=== PATIENT | female | born 1950 | race Caucasian/White ===

== ENCOUNTER → 2016-09-25 | Outpatient (CLI) | payer BC ==
--- NOTE | 2016-09-26 10:00 | KCIC ---
Bilateral digital screening mammograms with CAD: HISTORY Routine screening. COMPARISON Comparison is made to previous studies dated 09/24/2011. FINDINGS Breast density category D. The skin and nipples show no abnormalities. No abnormal lymph nodes are seen in the axilla. The breast parenchyma is extremely dense. There are new circumscribed nodules present in the medial right breast with the largest measuring at least 15 millimeters in greatest dimension. Further evaluation with ultrasound is recommended. There are no suspicious calcifications or architectural distortions. Some scattered benign appearing calcifications are present bilaterally. IMPRESSION Multiple circumscribed nodules in the right breast medially measuring up to 15 millimeters in size. Recommend further evaluation with ultrasound. This study was interpreted with the benefit of Computerized Aided Detection (CAD). Mammography is not 100% sensitive in detecting breast cancer. Therefore, a self breast exam and a clinical breast exam are very important. A negative mammogram does not negate a clinically suspicious finding and should not result in a delay in biopsying a clinically suspicious abnormality. BI-RADS category 0: Incomplete. Ultrasound followup is recommended. This patient's information has been entered into a reminder system for the patient to be notified with the results of this examination and a target date for her next mammograms. Electronically signed by: Martina Jenkins MD (September 26, 2016 09:58:36)
== END | disposition home or self-care (01) ==
LOC: KCIC MAMMO 14:11
PROVIDERS: ATTEND Internal Medicine
DX: Z12.31 Encounter for screening mammogram for malignant neoplasm of breast (principal)
CPT/HCPCS: G0202; 77067

== ENCOUNTER → 2016-10-08 | Outpatient (CLI) | payer BC ==
--- NOTE | 2016-10-08 15:24 | RAD ---
Indication abnormal mammogram. Note is made of the mammogram 09/25/2016 and the recommendation for ultrasound. Ultrasound of the right breast from approximately the 12 to the 6:00 position was performed. There are multiple cysts seen in the breast. Additional hypoechoic masses are seen, one at the 12:00 position of the breast 1 cm from the nipple measuring approximately 7 mm and a second retroareolar mass at the 12:00 position measuring approximately 13 mm. These do not have the features of a simple cyst but may represent complicated cysts. Follow-up targeted ultrasound and mammography of the right breast is suggested in 6 months to document stability IMPRESSION: Probable benign findings. Follow-up mammography and ultrasound suggested in 6 months. BI-RADS 3. Probably benign. Six-month follow-up
== END | disposition home or self-care (01) ==
LOC: KCIC US 14:05
PROVIDERS: ATTEND Internal Medicine
DX: R92.8 Other abnormal and inconclusive findings on diagnostic imaging of breast (principal)
CPT/HCPCS: 76641

== ENCOUNTER 2017-03-28 13:30 | Emergency (ER) | payer BC ==
[~2017-03-28] VITALS: Ht 160 cm; Wt 41.7 kg
[2017-03-28] MEDS ORDERED: ONDANSETRON PF 4 MG/2 ML VIAL. IV ONE (14:00)
[2017-03-28] MEDS ORDERED: IV NORMAL SALINE 1000ML BAG 1,000 ML IV ONE (14:00)
[2017-03-28] MEDS ORDERED: fentaNYL PF VIAL 100 MCG/2 ML VIAL IV PRN (14:00)
[2017-03-28 14:08] LABS: BILIRUBIN,URINE MODERATE (NEG); GLUCOSE,URINE NEGATIVE (NEG); NITRITE,URINE NEGATIVE (NEG); PROTEIN,URINE 30 mg/dL (NEG-TRACE)
[2017-03-28 14:11] LABS: BASO # 0.1 x10^3/uL (0.0-0.2); BASO % 0 % (0-3); EOS % 0 % (0-3); HEMATOCRIT 51.6 % (36.0-47.0); HEMOGLOBIN 17.5 g/dL (12.0-15.5); LYMPH # 3.6 x10^3/uL (1.0-4.8); LYMPH % 17 % (24-48); MEAN CORPUSCULAR HEMOGLOBIN 31 pg (25-35); MEAN CORPUSCULAR HGB CONC 34 g/dL (31-37); MEAN CORPUSCULAR VOLUME 90 fL (79-100); MONO % 6 % (0-9); NEUT % 76 % (31-73); PLATELET COUNT 298 x10^3/uL (140-400); RED BLOOD COUNT 5.72 x10^6/uL (3.50-5.40); RED CELL DISTRIBUTION WIDTH 14.1 % (11.5-14.5); WHITE BLOOD COUNT 21.9 x10^3/uL (4.0-11.0)
[2017-03-28] MEDS ORDERED: CONTRAST GIVEN MC PRN (14:15)
[2017-03-28] MEDS ORDERED: IOHEXOL 300 MG/ML 100ML VIAL. IV ONE (14:15)
[2017-03-28 14:23] LABS: BACTERIA,URINE 0 /HPF (0-FEW); RBC,URINE RARE /HPF (0-2); SQUAMOUS EPITHELIAL CELL,UR OCC /LPF
[2017-03-28 14:29] LABS: CREATININE 1.2 mg/dL (0.6-1.0); GFR 45.2; POTASSIUM 4.4 mmol/L (3.5-5.1)
[2017-03-28 14:44] LABS: ALBUMIN 3.6 g/dL (3.4-5.0); ALBUMIN/GLOBULIN RATIO 0.9 (1.0-1.7); MAGNESIUM 1.9 mg/dL (1.8-2.4); TOTAL BILIRUBIN 0.7 mg/dL (0.2-1.0); TOTAL PROTEIN 7.8 g/dL (6.4-8.2)
[2017-03-28 15:01] LABS: PLT ESTIMATE ADEQUATE (ADEQUATE)
--- NOTE | 2017-03-28 15:33 | EKG ---
[facility] [address] [place] [id number] Test Date: 2017-03-28 Test Time: 14:19:10 Pat Name: XI TRENT Department: Room: Gender: F Coat Baster: : 1950 Requested By: MAITE DENIS Order Number: [id number] Reading MD: Devaughn Drake MD Measurements Intervals [place] Rate: 104 P: 69 NM: 122 QRS: 63 QRSD: 86 T: 60 QT: 336 QTc: 448 Interpretive Statements SINUS TACHYCARDIA Electronically Signed On 03-31-2017 10:55:41 GORE SEAMER by Devaughn Drake MD
--- NOTE | 2017-03-28 15:46 | RAD ---
CT study of the abdomen and pelvis with contrast Indications: Vomiting and abdominal pain. Many abdominal surgeries. Technique: After IV infusion of 60 mL of Omnipaque 300, helical CT scanning of the abdomen and pelvis was performed. No GI contrast was administered. This may decrease the sensitivity to detect GI tract pathology. PQRS Compliance Statement: One or more of the following individualized dose reduction techniques were utilized for this examination: 1. Automated exposure control 2. Adjustment of the mA and/or kV according to patient size 3. Use of iterative reconstruction technique Comparison: None available at this facility. Findings: The liver and spleen and pancreas and gallbladder are normal. No adrenal mass is evident. Both kidneys are normal without hydronephrosis or hydroureter. Urinary bladder is empty. The patient has had multiple surgeries and it is difficult to figure out bowel anatomy. There is an ostomy of the anterior right lower quadrant of the abdomen. There are abnormally dilated loops of bowel filled with fluid and air within the lower abdomen and pelvis. This dilatation appears to extend to the opening of the ostomy of the anterior abdominal wall. Therefore, it is possible a stricture may be present here. A round calcified food bolus or stool is present here measuring 23 mm in size. There are multiple calcified fecaliths or food boluses within the more proximal bowel approximately 10 cm proximal to the ostomy. There is enhancement and mild thickening of the wall of this dilated bowel. More proximal bowel specifically the jejunum does not appear to be significantly dilated however. The stomach is nondistended. Small amount of dependent free fluid is seen within the pelvis. No free intraperitoneal air is evident. No lung base consolidation is seen. There is a linear scar or area of atelectasis of the left lung base. No osteolytic process is seen. IMPRESSION: The anatomy is difficult to figure out with regard to large and small bowel. By history, the rectum is surgically absent. There is abnormally dilated loops of fluid-filled and air-filled bowel within the lower abdomen and pelvis extending to the ostomy of the anterior lower right abdominal wall. Therefore, stricture at the level of the ostomy may be present. 23 mm calcified food bolus or piece of stool is seen just proximal to the ostomy opening. In addition, calcified fecaliths or food boluses are seen 10 cm proximal to this point. There is abnormal wall enhancement and thickening of this dilated bowel. No pneumatosis intestinalis is seen. No free air is evident. .
[2017-03-28] MEDS ORDERED: IV NORMAL SALINE 1000ML BAG 1,000 ML IV SCH (16:32)
[2017-03-28] MEDS ORDERED: PIPERACILLIN/TAZOBACTAM 4.5 GM in IV NORMAL SALINE 100ML 100 ML IV ONE (16:45)
[2017-03-28] MEDS ORDERED: PIPERACILLIN/TAZO IV Push 4.5 GM VIAL. IVP ONE (16:45)
[2017-03-28 17:30] VITALS: BP 95/62
--- NOTE | 2017-03-28 20:56 | PHYS DOC ---
Past Medical History Past Medical History: Arthritis, Hypothyroid, Other Additional Past Medical Histor: crohn's, rectal fistula, multiple abd sx Past Surgical History: Other Additional Past Surgical Histo: ileostomy - Kock pouch, rectum removed Alcohol Use: Rarely Drug Use: None Adult General Chief Complaint Chief Complaint: ABDOMINAL PAIN HPI HPI Patient is a 66 year old female who presents with vomiting and vomiting. Patient reports three-day history of symptoms with lower abdominal pain, nausea and vomiting, inability to tolerate oral intake. Reports decreased output to [place] ostomy. She denies fevers/chills, hematemesis, dysuria/hematuria. She has complicated past medical & surgical history with Crohn's disease on [employer] , rectal resection, ileostomy & reversal, now with [place] pouch, multiple fistula & repair. She has had all of her recent surgeries at [facility] [place] & has never been to this hospital before. She also has history of arthritis & hypothyroidism. Review of Systems Review of Systems Constitutional: Denies fever or chills Eyes: Denies change in visual acuity HENT: Denies nasal congestion or sore throat Respiratory: Denies cough or shortness of breath Cardiovascular: Denies chest pain or edema GI: Reports abdominal pain, nausea, vomiting, denies bloody stools or diarrhea : Denies dysuria or hematuria Musculoskeletal: Denies back pain or joint pain Integument: Denies rash or skin lesions Neurologic: Denies headache, focal weakness or sensory changes All other systems were reviewed and found to be within normal limits, except as documented in this note. Current Medications Current Medications Current Medications Medications (Trade) Dose Ordered Sig/Sukumar Start Time Stop Time Status Last Admin Dose Admin Fentanyl Citrate (Fentanyl 2ml Vial) 50 mcg PRN Q15MIN PRN 03/28/17 14:00 03/28/17 18:22 DC 03/28/17 14:13 50 MCG Info (Do NOT chart on this entry -- for MONITORING) 1 each PRN DAILY PRN 03/28/17 14:15 03/28/17 18:22 DC Iohexol (Omnipaque 300 Mg/ml) 75 ml 1X ONCE 03/28/17 14:15 03/28/17 14:16 DC 03/28/17 14:38 60 ML Ondansetron HCl (Zofran) 4 mg 1X ONCE 03/28/17 14:00 03/28/17 14:01 DC 03/28/17 14:12 4 MG Piperacillin Sod/ Tazobactam Sod (Zosyn) 4.5 gm 1X ONCE 03/28/17 16:45 03/28/17 16:46 DC Piperacillin Sod/ Tazobactam Sod 4.5 gm/Sodium Chloride 100 ml @ 200 mls/hr 1X ONCE 03/28/17 16:45 03/28/17 17:14 UNV Sodium Chloride 1,000 ml @ 1,260 mls/hr Q48M 03/28/17 16:32 03/28/17 17:32 DC Allergies Allergies Allergies Coded Allergies Type Severity Reaction Last Updated Verified No Known Drug Allergies 03/28/17 No Physical Exam Physical Exam Constitutional: thin, frail, no acute distress, non-toxic appearance. actively vomiting. HENT: Normocephalic, atraumatic, bilateral external ears normal, oropharynx moist, nose normal. Eyes: conjunctiva normal, no discharge. Neck: supple, no stridor. Cardiovascular: tachycardic, regular, no murmurs, no edema. Lungs & Thorax: LCTAB, no wheezing, no respiratory distress. Abdomen: soft, multiple surgical scars, [place] pouch to RLQ, moderate diffuse tenderness without rebound/guarding, no masses or pulsatile masses, nondistended. Skin: Warm, dry, no erythema, no rash. Back: No CVA tenderness. Extremities: No tenderness, no edema. Neurologic: Alert and oriented X 3, no focal deficits noted. Psychologic: Affect normal, judgement normal, mood normal. Current Patient Data Vital Signs Vital Signs Date Time Temp Pulse Resp B/P (MAP) Pulse Ox O2 Delivery O2 Flow Rate FiO2 03/28/17 17:30 88 18 95/62 (73) 94 Room Air 03/28/17 13:37 98.1 98.1 Lab Values Laboratory Tests Test 03/28/17 13:52 03/28/17 14:00 Urine Color [place] Urine Clarity Cloudy Urine pH 6.0 Urine Specific [place] 1.025 Urine Protein 30 mg/dL (NEG-TRACE) Urine Glucose (UA) Negative mg/dL (NEG) Urine Ketones (Stick) 15 mg/dL (NEG) Urine Blood Small (NEG) Urine Nitrite Negative (NEG) Urine Bilirubin Moderate (NEG) Urine Urobilinogen Dipstick 1.0 mg/dL (0.2 mg/dL) Urine Leukocyte Esterase Moderate (NEG) Urine RBC Rare /HPF (0-2) Urine WBC 1-4 /HPF (0-4) Urine Squamous Epithelial Cells Occ /LPF Urine Transitional Epithelial Cells Occ /LPF Urine Renal Epithelial Cells Occ /LPF Urine Bacteria 0 /HPF (0-FEW) Urine Mucus Slight /LPF White Blood Count 21.9 x10^3/uL (4.0-11.0) H Red Blood Count 5.72 x10^6/uL (3.50-5.40) H Hemoglobin 17.5 g/dL (12.0-15.5) H Hematocrit 51.6 % (36.0-47.0) H Mean Corpuscular Volume 90 fL (79-100) Mean Corpuscular Hemoglobin 31 pg (25-35) Mean Corpuscular Hemoglobin Concent 34 g/dL (31-37) Red Cell Distribution Width 14.1 % (11.5-14.5) Platelet Count 298 x10^3/uL (140-400) Neutrophils (%) (Auto) 76 % (31-73) H Lymphocytes (%) (Auto) 17 % (24-48) L Monocytes (%) (Auto) 6 % (0-9) Eosinophils (%) (Auto) 0 % (0-3) Basophils (%) (Auto) 0 % (0-3) Neutrophils # (Auto) 16.7 x10^3uL (1.8-7.7) H Lymphocytes # (Auto) 3.6 x10^3/uL (1.0-4.8) Monocytes # (Auto) 1.4 x10^3/uL (0.0-1.1) H Eosinophils # (Auto) 0.1 x10^3/uL (0.0-0.7) Basophils # (Auto) 0.1 x10^3/uL (0.0-0.2) Segmented Neutrophils % 65 % (35-66) Band Neutrophils % 14 % (0-9) H Lymphocytes % 16 % (24-48) L Monocytes % 5 % (0-10) Platelet Estimate Adequate (ADEQUATE) Sodium Level 135 mmol/L (136-145) L Potassium Level 4.4 mmol/L (3.5-5.1) Chloride Level 98 mmol/L (98-107) Carbon Dioxide Level 21 mmol/L (21-32) Anion Gap 16 (6-14) H Blood Urea Nitrogen 16 mg/dL (7-20) Creatinine 1.2 mg/dL (0.6-1.0) H Estimated GFR (Cockcroft-Gault) 45.2 BUN/Creatinine Ratio 13 (6-20) Glucose Level 118 mg/dL (70-99) H Lactic Acid Level 2.0 mmol/L (0.4-2.0) Calcium Level 10.0 mg/dL (8.5-10.1) Magnesium Level 1.9 mg/dL (1.8-2.4) Total Bilirubin 0.7 mg/dL (0.2-1.0) Aspartate Amino Transferase (AST) 27 U/L (15-37) Alanine Aminotransferase (ALT) 13 U/L (14-59) L Alkaline Phosphatase 86 U/L (46-116) Troponin I Quantitative < 0.017 ng/mL (0.000-0.055) Total Protein 7.8 g/dL (6.4-8.2) Albumin 3.6 g/dL (3.4-5.0) Albumin/Globulin Ratio 0.9 (1.0-1.7) L Lipase 209 U/L (73-393) Laboratory Tests 03/28/17 14:00 Laboratory Tests 03/28/17 14:00 EKG EKG Abdomen the: Sinus tachycardia rate 105, no acute ST or T wave changes, normal intervals, no ectopy[] Radiology/Procedures Radiology/Procedures PROCEDURE: CT ABD PELV W/ IV CONTRST ONLY CT study of the abdomen and pelvis with contrast Indications: Vomiting and abdominal pain. Many abdominal surgeries. Technique: After IV infusion of 60 mL of Omnipaque 300, helical CT scanning of the abdomen and pelvis was performed. No GI contrast was administered. This may decrease the sensitivity to detect GI tract pathology. PQRS Compliance Statement: One or more of the following individualized dose reduction techniques were utilized for this examination: 1. Automated exposure control 2. Adjustment of the mA and/or kV according to patient size 3. Use of iterative reconstruction technique Comparison: None available at this facility. Findings: The liver and spleen and pancreas and gallbladder are normal. No adrenal mass is evident. Both kidneys are normal without hydronephrosis or hydroureter. Urinary bladder is empty. The patient has had multiple surgeries and it is difficult to figure out bowel anatomy. There is an ostomy of the anterior right lower quadrant of the abdomen. There are abnormally dilated loops of bowel filled with fluid and air within the lower abdomen and pelvis. This dilatation appears to extend to the opening of the ostomy of the anterior abdominal wall. Therefore, it is possible a stricture may be present here. A round calcified food bolus or stool is present here measuring 23 mm in size. There are multiple calcified fecaliths or food boluses within the more proximal bowel approximately 10 cm proximal to the ostomy. There is enhancement and mild thickening of the wall of this dilated bowel. More proximal bowel specifically the jejunum does not appear to be significantly dilated however. The stomach is nondistended. Small amount of dependent free fluid is seen within the pelvis. No free intraperitoneal air is evident. No lung base consolidation is seen. There is a linear scar or area of atelectasis of the left lung base. No osteolytic process is seen. IMPRESSION: The anatomy is difficult to figure out with regard to large and small bowel. By history, the rectum is surgically absent. There is abnormally dilated loops of fluid-filled and air-filled bowel within the lower abdomen and pelvis extending to the ostomy of the anterior lower right abdominal wall. Therefore, stricture at the level of the ostomy may be present. 23 mm calcified food bolus or piece of stool is seen just proximal to the ostomy opening. In addition, calcified fecaliths or food boluses are seen 10 cm proximal to this point. There is abnormal wall enhancement and thickening of this dilated bowel. No pneumatosis intestinalis is seen. No free air is evident. . DICTATED and SIGNED BY: JANEEN EAGLE MD DATE: 03/28/17 1522 [] Course & Med Decision Making Course & Med Decision Making Pertinent Labs and Imaging studies reviewed. (See chart for details) The patient presents with abdominal pain & vomiting. She is tachycardic without fever. Gave IV fluids, zofran, pain medication, & she became more comfortable. Obtained labs which show leukocytosis. She appears dehydrated. She received IV fluids per sepsis protocol and Zosyn was administered for suspected intra-abdominal infection with SIRS criteria present. Obtained CT of the abdomen and pelvis which is difficult to interpret without previous study for comparison. Based on imaging, there is ongoing concern for possible obstruction. I discussed with the radiologist, it is not even clear if this is large bowel or small bowel. Discussed briefly with Dr. Mason of general surgery who felt that the patient would be best served by [facility] and imaging studies. The patient agreed with plan of care. Discussed with [facility] who agrees to accept for transfer and admission to the hospital. Recommended transfer by EMS. The patient became very anxious and wanted to smoke a cigarette. Her IV infiltrated and had to be removed. She decided she would rather have her transport [facility] to [facility] rather than be transported by EMS. Risks of transfer by private vehicle include worsening condition in route. Strongly recommended that the patient week for EMS transport but she decided to sign out here AGAINST MEDICAL ADVICE and does still plan to present to [facility] as arranged during this visit. She was in guarded condition when she departed. [] Dragon Disclaimer Dragon Disclaimer This electronic medical record was generated, in whole or in part, using a voice recognition dictation system. Departure Departure Impression: Primary Impression: Bowel obstruction Additional Impressions: Systemic inflammatory response syndrome Dehydration Crohn's disease Disposition: 05 TRANSFER OTHER Condition: GUARDED Referrals: JAYESH MIRELES Jr, MD (PCP) Problem Qualifiers MAITE DENIS MD Mar 28, 2017 20:56
== END 2017-03-28 18:15 | disposition short-term general hospital (02) ==
LOC: ER 13:30
DX: K56.609 Unspecified intestinal obstruction, unspecified as to partial versus complete obstruction (principal); R65.10 Systemic inflammatory response syndrome (SIRS) of non-infectious origin without acute organ dysfunction; E86.0 Dehydration; K50.90 Crohn's disease, unspecified, without complications; R00.0 Tachycardia, unspecified; M19.90 Unspecified osteoarthritis, unspecified site; E03.9 Hypothyroidism, unspecified
CPT/HCPCS: 36415; 74177; 80053; 81001; 83605; 83690; 83735; 84484; 85007; 85025; 87040; 87086; 93005; 96361; 96374; 96375; 99285; J2405; J3010; J7030; Q9967; J2543

== ENCOUNTER → 2019-01-29 | Outpatient (CLI) | payer BC ==
--- NOTE | 2019-01-29 15:14 | KCIC ---
EXAM: Bilateral digital diagnostic mammogram with tomosynthesis; right breast sonogram. HISTORY: 68-year-old female presents for follow-up evaluation of nodularity within the right breast demonstrated on a mammogram dated 09/25/2016 and sonogram dated 10/08/2016. The patient did not return at the recommended follow-up of interval and is now due for bilateral mammography. TECHNIQUE: Full-field digital craniocaudal and mediolateral oblique 2D and 3D tomosynthesis images of both breasts are obtained for evaluation. Computer aided detection with [employer] software version 9.3 was applied.. Sonographic imaging of the right breast including all 4 quadrants and the retroareolar region was performed. COMPARISON: Mammogram and sonogram dated 09/25/2016 and 10/08/2016. BREAST PARENCHYMAL DENSITY: Level D - Extremely dense. FINDINGS: There has been no significant change in nodularity within the right breast, primarily within the medial breast. No suspicious calcification or architectural distortion is seen. There is a metallic clip within the 4:00 position of the right breast. Sonographic imaging of the right breast demonstrates multiple simple and complicated cyst. This includes a 7.9 mm cyst with internal debris at the 12:00 retroareolar location, slightly decreased in size compared to the prior study. There is an adjacent similar appearing suspected complicated cyst with debris at the 12:00 position 0.5 cm from the nipple measuring 10.0 mm, without a correlate on the prior exam. There is a 7 mm suspected comminuted cyst with internal debris at the 12:00 position 1 cm from the nipple, minimally changed compared with prior study. The possibility of a fibroadenoma and this location is not excluded. There are few additional simple and complicated cysts which are not significantly changed. There is a lesion at the 12:00 position 3 cm from the nipple on the prior exam which is not seen on the current exam. There are few additional lesions within this location which are stable in appearance. IMPRESSION: 1. Multiple simple and complicated cysts within the right breast, primarily at the 12:00 to 2:00 positions. This corresponds with mammographic nodularity within this location. The possibility of a superimposed fibroadenoma is not excluded. The multiplicity of these lesions and absence of internal blood flow favors benignity. 2. BI-RADS Category 3: Probably benign finding(s). Given the number of these lesions and complex cystic characteristics, follow up with a right breast sonogram in 6 months is recommended to confirm benignity. If your mammogram demonstrates that you have dense breast tissue, which could hide abnormalities, and if you have other risk factors for breast cancer that have been identified, you might benefit from supplemental screening tests that may be suggested by your ordering physician. Dense breast tissue, in and of itself, is a relatively common condition. This information is not provided to cause undue concern, but rather to raise your awareness and to promote discussion with your physician regarding the presence of other risk factors, in addition to dense breast tissue. A report of your mammography results will be sent to you and your physician. You should contact your physician if you have any questions or concerns regarding this report. Mammography is a sensitive method for finding small breast cancers, but it does not detect them all and is not a substitute for careful clinical examination. A negative mammogram does not negate a clinically suspicious finding and should not result in delay in biopsying a clinically suspicious abnormality. PQRS compliance statement - Patient information was entered into a reminder system with a target due date for the next mammogram. "Our facility is accredited by the [employer] Mammography Program." Electronically signed by: Frances Vargas MD (01/29/2019 3:11 PM) [id number]
== END | disposition home or self-care (01) ==
LOC: KCIC MAMMO 12:53
PROVIDERS: ATTEND Internal Medicine
DX: N60.01 Solitary cyst of right breast (principal)
CPT/HCPCS: 76641; 77066; G0279; 77062